=== PATIENT | male | born 2000 | race Caucasian/White ===

== ENCOUNTER 2019-02-13 11:29 | Observation (INO) | payer BC ==
[2019-02-13] MEDS ORDERED: Famotidine 20 MG/2 ML SDV IVPUSH ONE (11:31)
--- NOTE | 2019-02-13 11:31 | EDM.PDOC ---
ED HPI GENERAL MEDICAL PROBLEM - General Chief Complaint: Drug or Alcohol Abuse Stated Complaint: hallucinations Time Seen by Provider: 02/13/19 11:31 Source of Information: Reports: Patient, EMS, Family (Mother), Old Records (No previous hospital records available.). Denies: EMS Notes Reviewed (Not available at time of dictation) History Limitations: Reports: Altered Mental Status - History of Present Illness INITIAL COMMENTS - FREE TEXT/NARRATIVE: The patient was brought to the emergency room via ambulance with spraying machine operator accompaniment. He did receive 1 mg sublingual tablet of Ativan from the spraying machine operator at about 11 AM this morning. Note at about 8 AM the patient ate 3 hallucinogenic mushrooms with the patient having used these in the past. He obtained these from a friend and also admits to daily marijuana use as below during the last year. The paramedics did call poison control with Ativan and Haldol recommended for treatment but no gastric lavage, charcoal, etc. per their recommendations. Patient is an extremely poor historian secondary to his previous auditory and visual hallucinations and current confusion with 50% improvement of his symptoms per paramedics after Ativan was given. The patient denies any chest pain/pressure, heart flutter, dizziness, orthostasis, orthopnea , diaphoresis, paresthesias, recent decreased exercise tolerance, or any other anginal-type symptoms. No recent history of abdominal pain, heartburn, nausea, diarrhea, melena, gross hematochezia, or any food intolerance, including fatty foods, etc.. The patient also denies any recent fever, cough, wheezing, dyspnea , etc.. No history of recent headaches, visual changes, diplopia, change in mental status, or other change in neurological status. He denies any pain or discomfort. Onset: Today, Sudden Onset Date: 02/13/19 Onset Time: 08:00 Duration: Improving Location: Reports: Other (No pain) Quality: Denies: Same as Previous Episode Severity: Severe (Hallucinations as above) Improves with: Reports: Medication Worsens with: Reports: None Context: Reports: Other (As above). Denies: Sick Contact, Trauma Associated Symptoms: Reports: Confusion. Denies: Chest Pain, Cough, Diaphoresis , Fever/Chills, Headaches, Loss of Appetite, Malaise, Nausea/Vomiting, Shortness of Breath, Syncope, Weakness Treatments ACQUISITIONS LOGISTICS ANALYST: Reports: Other Medication(s) (As above) - Related Data Allergies Allergy/AdvReac Type Severity Reaction Status Date / Time No Known Allergies Allergy Verified 02/13/19 11:35 Past Medical History HEENT History: Reports: None. Denies: Allergic Rhinitis, Hard of Hearing, Impaired Vision, Otitis Media, Retinal Detachment Cardiovascular History: Reports: Hypertension, Other (See Below). Denies: Afib , Aneurysm, Arrhythmia, Blood Clots/VTE/DVT, CAD, Heart Murmur, High Cholesterol , AL, Syncope Other Cardiovascular History: Hypertension not currently under medical therapy. Cholesterol status unknown. Respiratory History: Reports: None. Denies: Asthma, Bronchitis, Recurrent, COPD , Intubation, Difficult, Intubation, Previous, PE, Pneumonia, Recurrent, Pneumothorax, Sleep Apnea Gastrointestinal History: Reports: None. Denies: Celiac Disease, Cholelithiasis , Chronic Constipation, Chronic Diarrhea, Fecal Incontinence, Gastritis, GERD, GI Bleed, Hepatitis, Inflammatory Bowel Disease, Irritable Bowel Syndrome, Jaundice, Pancreatitis, PUD Genitourinary History: Reports: None. Denies: Acute Renal Failure, Chronic Renal Insuffiency, Renal Calculus, STD, Urinary Incontinence, UTI, Recurrent Musculoskeletal History: Reports: Amputation, Fracture, Other (See Below). Denies: Arthritis, Back Pain, Chronic, Gout, Neck Pain, Chronic, Osteoarthritis , RA, SLE Other Musculoskeletal History: Left mid radial ulnar fracture at about age 9. Neurological History: Denies: Cerebral Aneurysms, Concussion, CVA, Headaches, Chronic, Head Trauma, Migraines, Neuropathy, Peripheral, Seizure, TIA Psychiatric History: Reports: Addiction, Anxiety, Depression, Suicidal Ideation. Denies: Abuse, Victim of, ADD, ADHD, Psych Hospitalization(s), PTSD, Suicide Attempt Other Psychiatric History: Marijuana use as below. Endocrine/Metabolic History: Reports: None. Denies: Diabetes, Type I, Diabetes , Type II, Diabetes Mellitus, Type 3c, Hypothyroidism, IDDM, Obesity/BMI 30+ Hematologic History: Reports: None. Denies: Anemia, Blood Transfusion(s), Iron Deficiency Immunologic History: Denies: AIDS, HIV, SLE Oncologic (Cancer) History: Reports: None. Denies: Basal Cell Carcinoma, Hodgkin's Lymphoma, Leukemia, Lymphoma, Malignant Melanoma, Non-Hodgkin's Lymphoma, Squamous Cell Carcinoma Dermatologic History: Reports: None. Denies: Eczema, Psoriasis - Infectious Disease History Infectious Disease History: Reports: Mumps. Denies: C-Difficile, Chicken Pox, Measles, Meningitis, Mononucleosis, MRSA, Pertussis (Whooping Cough), Rheumatic Fever, Rubella, Scarlet Fever, Shingles, TB, VRE - Past Surgical History Head Surgeries/Procedures: Reports: None HEENT Surgical History: Denies: Adenoidectomy, Eye Surgery, Laser Surgery, LASIK , Myringotomy w Tube(s), Naso-Sinus Surgery, Oral Surgery, Tonsillectomy Cardiovascular Surgical History: Reports: None. Denies: Varicose Respiratory Surgical History: Reports: None. Denies: Thoracentesis GI Surgical History: Reports: Hernia, Inguinal, Other (See Below). Denies: Appendectomy, Cholecystectomy, Colonoscopy, EGD, Hernia, Abdominal, Hernia Repair/Other Other GI Surgeries/Procedures: Left inguinal repair in 2017. Male Surgical History: Reports: Circumcision, Other (See Below). Denies: Vasectomy Other Male Surgeries/Procedures: Circumcision as an infant. Endocrine Surgical History: Reports: None. Denies: Thyroid Biopsy Neurological Surgical History: Reports: None. Denies: C-Spine, Discectomy, Laminectomy, Lumbar Spine, Sacral Spine, Spinal Fusion, Thoracic Spine, Vertebroplasty Musculoskeletal Surgical History: Reports: None. Denies: Arthroscopic Procedure , Carpal Tunnel, Ganglion Cyst, Joint Replacement, ORIF, Shoulder Surgery Oncologic Surgical History: Reports: None Dermatological Surgical History: Reports: None Social & Family History - Family History HEENT: Reports: None, Macular Degeneration, Other (See Below). Denies: Glaucoma , Retinal Detachment Other HEENT Family History: Paternal grandfather with macular degeneration. Cardiac: Reports: CAD, Hypertension, AL, Other (See Below). Denies: Afib, Aneurysm, Arrhythmia, Blood Clots/VTE/DVT, High Cholesterol, PVD/COD, Stent, Syncope Other Cardiac Family History: Paternal grandfather with history of AL in his 60s with CABG x3. Mother and maternal grandfather with hypertension. Respiratory: Reports: Asthma, Other (See Below). Denies: COPD, PE, Pneumothorax , Sleep Apnea Other Respiratory Family Hisory: Mother with asthma. GI: Reports: GERD, Other (See Below). Denies: Celiac Disease, Cholelithiasis, Colon Polyps, GI bleed, Inflammatory Bowel Disease, Irritable Bowel Syndrome, PUD Other GI Family History: Mother and maternal grandfather with GERD. : Reports: Other (See Below). Denies: Renal Calculus, Renal Disease/ Insufficiency Other Family History: Brother with non-descended testis with planned surgery at age 13. OBGYN: Reports: Dysfunctional uterine bleeding, Fibroids, Recurrent Spontaneous , Other (See Below). Denies: Endometriosis Other OBGYN Family History: Mother with history of hysterectomy secondary to uterine fibroids and dysfunctional uterine bleeding. Maternal grandmother with recurrent SABs. Musculoskeletal: Reports: SLE, Other (See Below). Denies: Gout, RA Other Musculoskeletal Family History: Mother with SLE. Neurological: Reports: Migraines, Other (See Below). Denies: Alzheimers Disease , Cerebral Aneurysms, CVA, Dementia, MS, Parkinson's, Seizure, TIA Other Neurological Family History: Mother with migraine headaches. Psychiatric: Reports: Anxiety, Depression, Other (See Below). Denies: Abuse, Victim of, ADD, ADHD, Psych Hospitalization(s), Psychosis, PTSD, Suicide Attempt Other Psychiatric Family History: Mother, maternal uncle, and maternal grandmother with anxiety depression disorder. Endocrine/Metabolic: Reports: Hypothyroidism, Other (See Below). Denies: Diabetes, Gestational, Diabetes, Type I, Diabetes, type II, Diabetes Mellitus, Type 3c, IDDM Other Endocrine/Metabolic Family History: Mother with hypothyroidism. Hematologic: Reports: SLE, Other (See Below). Denies: Anemia Other Hematologic Family History: Mother with SLE. Immunologic: Reports: SLE, Other (See Below). Denies: AIDS, HIV Other Immunologic Family History: Mother with SLE as above. Dermatologic: Reports: None. Denies: Eczema, Psoriasis Oncologic: Reports: Breast, Pancreatic, Other (See Below). Denies: Colon, Hodgkin's Lymphoma, Lymphoma, Non-Hodgkin's Lymphoma, Prostate, Skin Other Oncologic Family History: Mother with fatal metastatic breast cancer at age 47. Maternal great grandmother with fatal pancreatic cancer at 68. Maternal grandfather with mesothelioma. - Tobacco Use Smoking Status *Q: Former Smoker Tobacco Use Within Last Twelve Months: Cigarettes Years of Tobacco use: 6 Packs/Tins Daily: 0.1 Packs/Tins Daily Comment: Smoked cigarettes between ages 12 and 18. Used Tobacco, but Quit: Yes Smoking Cessation Information Provided To Patient: No Second Hand Smoke Exposure: No Second Hand Smoke Education Provided: No - Caffeine Use Caffeine Use: Reports: Energy Drinks (2 Cans per day.). Denies: Coffee, Soda, Tea - Alcohol Use Alcohol Use History: Yes Days Per Week of Alcohol Use: 7 Number of Drinks Per Day: 2 Number of Drinks Per Day Comment: Usually beer. No previous DWIs, problems with alcohol abuse, etc. Total Drinks Per Week: 14 Alcohol Use in Last Twelve Months: Yes Alcohol Use Frequency: Daily - Recreational Drug Use Recreational Drug Use: Yes Drug Use in Last 12 Months: Yes Recreational Drug Type: Reports: Marijuana/Hashish (0.5 joints per day since age 18.), Psilocybin (Mushrooms). Denies: Amphetamines (Speed), Heroin, Inhalants (Glues, Solvents, Aerosols), LSD (Acid), Methamphetamine, Morphine, Oxycodone, PCP (Oscar Dust) Recreational Drug Use Frequency: Daily Recreational Drug Route: Reports: Inhaled - Living Situation & Occupation Living situation: Reports: Single (No children), Alone Occupation: Employed ([email or web address]) ED ROS GENERAL - Review of Systems Review Of Systems: Comprehensive ROS is negative, except as noted in HPI. ED EXAM, GENERAL - Physical Exam Exam: See Below Exam Limited By: No Limitations General Appearance: Alert, No Apparent Distress, Other (Confusion with auditory and visual hallucinations) Eye Exam: Bilateral Eye: EOMI, Normal Fundi, Normal Inspection (No nystagmus), PERRL Ears: Normal External Exam, Normal Canal, Hearing Grossly Normal, Normal TMs Nose: Normal Inspection, Normal Mucosa, No Blood Throat/Mouth: Normal Inspection, Normal Lips, Normal Teeth, Normal Gums, Normal Oropharynx, Normal Voice, No Airway Compromise. No: Dysphagia, Perioral Cyanosis Head: Atraumatic, Normocephalic. No: Facial Swelling, Facial Tenderness, Sinus Tenderness Neck: Normal Inspection, Supple, Non-Tender, Full Range of Motion. No: Carotid Bruit, Lymphadenopathy (L), Lymphadenopathy (R), Thyromegaly Respiratory/Chest: No Respiratory Distress, Lungs Clear, Normal Breath Sounds, No Accessory Muscle Use, Chest Non-Tender. No: Pleural Rub, Retractions Cardiovascular: Normal Peripheral Pulses, Regular Rate, Rhythm, No Edema, No Gallop, No JVD, No Murmur, No Rub. No: Gallop/S3, Gallop/S4, Friction Rub Peripheral Pulses: 2+: Radial (L), Radial (R), Dorsalis Pedis (L), Dorsalis Pedis (R) GI/Abdominal: Normal Bowel Sounds, Soft, Non-Tender, No Organomegaly, No Distention, No Abnormal Bruit, No Mass. No: Guarding (Male) Exam: Deferred Rectal (Males) Exam: Deferred Back Exam: Normal Inspection, Full Range of Motion. No: CVA Tenderness (L), CVA Tenderness (R), Muscle Spasm Extremities: Normal Inspection, Normal Range of Motion, Non-Tender, No Pedal Edema, Normal Capillary Refill. No: Omega's Sign Neurological: Alert, Normal Reflexes (Negative Babinski's), Confused, Disoriented, Other (Hallucinations as above) Psychiatric: Anxious (Moderate), Depressed Mood (Mild to moderate) Skin Exam: Warm, Dry, Intact, Normal Color, No Rash. No: Diaphoretic, Ecchymosis, Petechiae, Wound/Incision Lymphatic: No Adenopathy Course - Vital Signs Last Recorded V/S: Last Vital Signs Temp 37.1 C 02/13/19 11:33 Pulse 79 02/13/19 12:30 Resp 16 02/13/19 12:30 BP 129/79 02/13/19 12:30 Pulse Ox 98 02/13/19 12:30 Vital Signs - 24 hr 02/13/19 02/13/19 02/13/19 11:31 11:33 11:45 Temperature [ 37.1 C 37.1 C Oral] Pulse, 81 81 89 Peripheral [ Pulse Oximetry] Respiratory 14 14 20 Rate Blood Pressure 137/92 H 137/92 H 141/79 H [Right Upper Arm] O2 Sat by Pulse 99 100 100 Oximetry 02/13/19 02/13/19 02/13/19 12:00 12:15 12:30 Temperature [ Oral] Pulse, 74 74 79 Peripheral [ Pulse Oximetry] Respiratory 17 16 16 Rate Blood Pressure 130/73 123/63 129/79 [Right Upper Arm] O2 Sat by Pulse 98 95 98 Oximetry - Orders/Labs/Meds Orders: Active Orders 24 hr Category Date Time Status Cardiac Monitoring [RC] . DIRECTED Care 02/13/19 11:31 Active Oxygen Therapy, ED [RC] PRN Care 02/13/19 11:31 Active Peripheral IV Care [RC] . DIRECTED Care 02/13/19 11:31 Active Pulse Oximetry [RC] CONTINUOUS Care 02/13/19 11:31 Active Up With Assistance [RC] PFP Care 02/13/19 11:31 Active Vital Signs [RC] PFP Care 02/13/19 11:31 Active Nothing per Oral Now Diet [DIET] Diet 02/13/19 Breakfast Active CULTURE URINE [RM] Routine Lab 02/13/19 11:31 Ordered DRUG SCREEN, URINE [URCHEM] Stat Lab 02/13/19 11:34 Ordered UA W/MICROSCOPIC [URIN] Stat Lab 02/13/19 11:33 Ordered Sodium Chloride 0.9% [Saline Flush] Med 02/13/19 11:31 Active 10 ml FLUSH ASDIRECTED PRN Obtain Past Medical Record [OM.PC] Urgent Oth 02/13/19 11:31 Active Peripheral IV Insertion Adult [OM.PC] Stat Oth 02/13/19 11:31 Ordered Resuscitation Status Stat Resus Stat 02/13/19 11:31 Ordered Medication Orders Sodium Chloride (Saline Flush) 10 ml FLUSH ASDIRECTED PRN PRN Reason: Keep Vein Open Last Admin: 02/13/19 11:52 Dose: 10 ml Admin: 02/13/19 11:51 Dose: 10 ml Labs: Laboratory Tests 02/13/19 02/13/19 02/13/19 Range/Units 11:30 11:31 11:35 WBC 11.4 H (4.0-10.2) K/uL RBC 4.95 (4.33-5.41) M/uL Hgb 15.1 (13.1-16.8) g/dL Hct 42.5 (39.0-49.0) % MCV 85.9 (84.0-98.0) fL MCH 30.5 (28.2-33.3) pg MCHC 35.5 (31.7-36.0) g/dL RDW 12.1 (11.2-14.1) % Plt Count 228 (150-350) K/uL Neut % (Auto) 81.2 H (45.0-80.0) % Lymph % (Auto) 11.0 (10.0-50.0) % [place] % (Auto) 7.1 (2.0-14.0) % Eos % (Auto) 0.4 (0.0-5.0) % Baso % (Auto) 0.3 (0.0-2.0) % Neut # (Auto) 9.27 H (1.40-7.00) K/uL Lymph # (Auto) 1.26 (0.50-3.50) K/uL [place] # (Auto) 0.81 (0.00-1.00) K/uL Eos # (Auto) 0.05 (0.00-0.50) K/uL Baso # (Auto) 0.03 (0.00-0.20) K/uL PT 11.7 (9.5-12.0) SEC INR 1.1 APTT 28.2 (21.0-31.3) SEC Sodium 139 (136-145) mmol/L Potassium 3.6 (3.5-5.1) mmol/L Chloride 100 (98-107) mmol/L Carbon Dioxide 28.4 (21.0-32.0) mmol/L BUN 18 (7-18) mg/dL Creatinine 1.03 (0.51-1.17) mg/dL Est Cr Clr Drug Dosing TNP Estimated GFR (MDRD) > 60 mL/min Glucose 109 H (74-106) mg/dL Lactic Acid (0.4-2.0) mmol/L Uric Acid 6.6 (2.6-7.2) mg/dL Calcium 9.4 (8.5-10.1) mg/dL Magnesium 1.9 (1.8-2.4) mg/dL Total Bilirubin 0.6 (0.2-1.0) mg/dL AST 20 (15-37) U/L ALT 22 (12-78) U/L Alkaline Phosphatase 68 (46-116) IU/L Creatine Kinase 243 (26-308) U/L Creatine Kinase Index 0.7 (0.0-2.5) % CK-MB (CK-2) 1.70 (0.00-3.60) ng/mL Total Protein 8.5 H (6.4-8.2) g/dL Albumin 4.7 (3.4-5.0) g/dL TSH, Ultra Sensitive 3.143 (0.358-3.740) mIU/mL 02/13/19 Range/Units 11:35 WBC (4.0-10.2) K/uL RBC (4.33-5.41) M/uL Hgb (13.1-16.8) g/dL Hct (39.0-49.0) % MCV (84.0-98.0) fL MCH (28.2-33.3) pg MCHC (31.7-36.0) g/dL RDW (11.2-14.1) % Plt Count (150-350) K/uL Neut % (Auto) (45.0-80.0) % Lymph % (Auto) (10.0-50.0) % [place] % (Auto) (2.0-14.0) % Eos % (Auto) (0.0-5.0) % Baso % (Auto) (0.0-2.0) % Neut # (Auto) (1.40-7.00) K/uL Lymph # (Auto) (0.50-3.50) K/uL [place] # (Auto) (0.00-1.00) K/uL Eos # (Auto) (0.00-0.50) K/uL Baso # (Auto) (0.00-0.20) K/uL PT (9.5-12.0) SEC INR APTT (21.0-31.3) SEC Sodium (136-145) mmol/L Potassium (3.5-5.1) mmol/L Chloride (98-107) mmol/L Carbon Dioxide (21.0-32.0) mmol/L BUN (7-18) mg/dL Creatinine (0.51-1.17) mg/dL Est Cr Clr Drug Dosing Estimated GFR (MDRD) mL/min Glucose (74-106) mg/dL Lactic Acid 1.9 (0.4-2.0) mmol/L Uric Acid (2.6-7.2) mg/dL Calcium (8.5-10.1) mg/dL Magnesium (1.8-2.4) mg/dL Total Bilirubin (0.2-1.0) mg/dL AST (15-37) U/L ALT (12-78) U/L Alkaline Phosphatase (46-116) IU/L Creatine Kinase (26-308) U/L Creatine Kinase Index (0.0-2.5) % CK-MB (CK-2) (0.00-3.60) ng/mL Total Protein (6.4-8.2) g/dL Albumin (3.4-5.0) g/dL TSH, Ultra Sensitive (0.358-3.740) mIU/mL Meds: Medications Generic Name Dose Route Start Last Admin Trade Name Freq PRN Reason Stop Dose Admin Sodium Chloride 10 ml 02/13/19 11:31 02/13/19 11:52 Saline Flush FLUSH 10 ml ASDIRECTED PRN Administration Keep Vein Open Discontinued Medications Generic Name Dose Route Start Last Admin Trade Name Freq PRN Reason Stop Dose Admin Famotidine 40 mg 02/13/19 11:31 02/13/19 11:51 Pepcid IVPUSH 02/13/19 11:32 40 mg ONETIME ONE Administration Haloperidol Lactate 1 mg 02/13/19 11:34 02/13/19 11:51 Haldol IVPUSH 02/13/19 11:35 1 mg ONETIME ONE Administration - Radiology Interpretation Free Text/Narrative:: Processing Specialist shows normal sinus rhythm with heart rate in the 70s to 90s with no ectopy or arrhythmia. Departure - Departure Time of Disposition: 12:55 Disposition: Refer to Observation Condition: Good Clinical Impression: Drug abuse, Confusion, Mixed anxiety depressive disorder Hypertension Qualifiers: Hypertension type: essential hypertension Qualified Code(s): I10 - Essential ( primary) hypertension - Discharge Information *PRESCRIPTION DRUG MONITORING PROGRAM REVIEWED*: Not Applicable *COPY OF PRESCRIPTION DRUG MONITORING REPORT IN PATIENT JANIA: Not Applicable Sepsis Event Note - Focused Exam Vital Signs: Vital Signs Temp Pulse Resp BP Pulse Ox 02/13/19 12:30 79 16 129/79 98 02/13/19 12:15 74 16 123/63 95 02/13/19 12:00 74 17 130/73 98 02/13/19 11:45 89 20 141/79 H 100 02/13/19 11:33 37.1 C 81 14 137/92 H 100 02/13/19 11:31 37.1 C 81 14 137/92 H 99 Date Exam was Performed: 02/13/19 Time Exam was Performed: 13:16 - Problem List & Annotations (1) Confusion SNOMED Code(s): 895613840 Code(s): R41.0 - DISORIENTATION, UNSPECIFIED Status: Acute Priority: High Current Visit: Yes Onset Date: 02/13/19 Annotation/Comment:: Auditory and visual hallucinations with confusion secondary to hallucinogenic mushroom use as above. Poison control has already been contacted. IV Haldol was given in the emergency room with continuation of IV Ativan and IV Haldol as needed. Patient will be placed in observation status on telemetry with blood work to be repeated in the a.m. Neuro checks with vitals. Mild WBC elevation likely secondary to stress reaction. (2) Drug abuse SNOMED Code(s): 90496340 Code(s): F19.10 - OTHER PSYCHOACTIVE SUBSTANCE ABUSE, UNCOMPLICATED Status : Chronic Priority: High Current Visit: Yes Annotation/Comment:: Increased marijuana and drug use during the last year with progressive anxiety and depression by his mother's history. In addition, possible beginning alcohol abuse. [employer] work excuse provided. (3) Hypertension SNOMED Code(s): 04418117 Code(s): I10 - ESSENTIAL (PRIMARY) HYPERTENSION Status: Chronic Priority : Medium Current Visit: Yes Annotation/Comment:: Not currently under medical therapy. Improved at time of admission. Continue to observe closely. Qualifiers: Hypertension type: essential hypertension Qualified Code(s): I10 - Essential (primary) hypertension (4) Mixed anxiety depressive disorder SNOMED Code(s): 834048386 Code(s): F41.8 - OTHER SPECIFIED ANXIETY DISORDERS Status: Chronic Priority: High Current Visit: Yes Annotation/Comment:: Patient states he has had history of recent suicidal ideation without plan. Patient would benefit from counseling, etc. Emotional support provided. - Problem List Review Problem List Initiated/Reviewed/Updated: Yes - My Orders Last 24 Hours: My Active Orders 02/13/19 11:31 Cardiac Monitoring [RC] . DIRECTED Oxygen Therapy, ED [RC] PRN Peripheral IV Care [RC] . DIRECTED Pulse Oximetry [RC] CONTINUOUS Up With Assistance [RC] PFP Vital Signs [RC] PFP CULTURE URINE [RM] Routine Sodium Chloride 0.9% [Saline Flush] 10 ml FLUSH ASDIRECTED PRN Obtain Past Medical Record [OM.PC] Urgent Peripheral IV Insertion Adult [OM.PC] Stat Resuscitation Status Stat 02/13/19 11:33 UA W/MICROSCOPIC [URIN] Stat 02/13/19 11:34 DRUG SCREEN, URINE [URCHEM] Stat 02/13/19 Breakfast Nothing per Oral Now Diet [DIET] - Assessment/Plan Admission H&P: Please use this note as an admission H&P Last 24 Hours: My Active Orders 02/13/19 11:31 Cardiac Monitoring [RC] . DIRECTED Oxygen Therapy, ED [RC] PRN Peripheral IV Care [RC] . DIRECTED Pulse Oximetry [RC] CONTINUOUS Up With Assistance [RC] PFP Vital Signs [RC] PFP CULTURE URINE [RM] Routine Sodium Chloride 0.9% [Saline Flush] 10 ml FLUSH ASDIRECTED PRN Obtain Past Medical Record [OM.PC] Urgent Peripheral IV Insertion Adult [OM.PC] Stat Resuscitation Status Stat 02/13/19 11:33 UA W/MICROSCOPIC [URIN] Stat 02/13/19 11:34 DRUG SCREEN, URINE [URCHEM] Stat 02/13/19 Breakfast Nothing per Oral Now Diet [DIET] Assessment:: As above Plan: As above. Extensive precautions were given to the patient and his mother, who are in agreement with the treatment plan. See Patient Instructions for further treatment and plan.
[2019-02-13] MEDS ORDERED: Haloperidol Lactate 5 MG/ML SDV IVPUSH ONE (11:34)
[2019-02-13] MEDS: Sodium Chloride 0.9% 10 ML Syringe FLUSH PRN ×2 (11:51→11:52)
[2019-02-13 12:06] LABS: CHLORIDE,CL 100 mmol/L (98-107); SODIUM,NA 139 mmol/L (136-145)
[2019-02-13] MEDS ORDERED: Ondansetron 4 MG/2 ML SDV IVPUSH PRN (13:23)
[2019-02-13] MEDS ORDERED: Acetaminophen 325 MG Tab PO PRN (13:23)
[2019-02-13] MEDS ORDERED: Haloperidol Lactate 5 MG/ML SDV IVPUSH PRN (13:25)
[2019-02-13] MEDS ORDERED: LORazepam 2 MG/ML SDV IVPUSH PRN (13:26)
[2019-02-13] MEDS ORDERED: Sodium Chloride 0.9% 10 ML Syringe FLUSH SCH (20:00)
[2019-02-14 06:47] LABS: BARBITURATE SCREEN,URINE NEGATIVE (NEGATIVE); BENZODIAZEPINES SCREEN,URINE NEGATIVE (NEGATIVE); EDDP,URINE SCREEN NEGATIVE (NEGATIVE); TCA SCREEN,URINE NEGATIVE (NEGATIVE); THC SCREEN,URINE 50 NG/ML POSITIVE (NEGATIVE)
[2019-02-14 07:43] LABS: CHLORIDE,CL 103 mmol/L (98-107); SODIUM,NA 139 mmol/L (136-145)
--- NOTE | 2019-02-14 09:18 | PCM.DCSUM1 ---
Discharge Summary - Hospital Course HPI Initial Comments: See emergency room note/admission H&P Brief History: See emergency room note/admission H&P Diagnosis: Stroke: No Modified [place] Scale: No Symptoms at All Modified [place] Scale Score: 0 - Discharge Data Discharge Date: 02/14/19 Discharge Disposition: Home, Self-Care 01 Condition: Good - Referral to Home Health Primary Care Physician: Renuka Haskins PA-C - Discharge Diagnosis/Problem(s) (1) Confusion SNOMED Code(s): 262052756 ICD Code: R41.0 - DISORIENTATION, UNSPECIFIED Status: Acute Priority: High Current Visit: Yes Onset Date: 02/13/19 Problem Details: Patient responded well to IV Ativan and IV Haldol therapy as below with resolution of previous auditory and visual hallucinations with confusion secondary to hallucinogenic mushroom use. Poison control had already been contacted by the paramedics prior to arrival to the emergency room. IV Haldol was given in the emergency room with continuation of IV Ativan and IV Haldol as needed during this hospitalization. Patient was placed in observation status on telemetry with blood work repeated with results as below. Neuro checks with vitals during this hospitalization were stable and his mental status at discharge. Mild persistent WBC elevation likely secondary to stress reaction however improved this morning with no evidence of infection. (2) Drug abuse SNOMED Code(s): 78271689 ICD Code: F19.10 - OTHER PSYCHOACTIVE SUBSTANCE ABUSE, UNCOMPLICATED Status : Chronic Priority: High Current Visit: Yes Problem Details: Increased marijuana and drug use during the last year with progressive anxiety and depression by his mother's history. In addition, possible beginning alcohol abuse. [employer] work excuse provided both on admission and at hospital discharge. Patient denies an aggravating factor during the last year, which resulted in his significant illicit drug use as above. Harmful effects of illicit drugs was extensively discussed at time of discharge patient also encouraged to avoid alcohol use. (3) Mixed anxiety depressive disorder SNOMED Code(s): 793267030 ICD Code: F41.8 - OTHER SPECIFIED ANXIETY DISORDERS Status: Chronic Priority: High Current Visit: Yes Problem Details: Minicounseling was performed during today's visit with emotional support provided. The effects of marijuana, etc. on his emotional status was also extensively discussed. The importance of spiritual aspects of emotional health and initiation of family counseling with his mother and family either with his regular provider or another counselor were also emphasized. The patient does not wish to start medication for his anxiety depression at this time, however he does agree to consider recommended counseling as above. He denies any current suicidal ideation with the patient stating that he has had recent suicidal ideation without plan during the last year. (4) Hypertension SNOMED Code(s): 83326669 ICD Code: I10 - ESSENTIAL (PRIMARY) HYPERTENSION Status: Chronic Priority : Medium Current Visit: Yes Problem Details: Not currently under medical therapy. Improved at time of admission with probable anxiety component to his previous elevated blood pressures. Blood pressures were stable and mostly normal during this hospitalization. Continue to observe closely by his regular provider.. Qualifiers: Hypertension type: essential hypertension Qualified Code(s): I10 - Essential (primary) hypertension - Patient Summary/Data Operative Procedure(s) Performed: None Complications: None Consults: Poison control as above Labs Pending at D/C: None Recommended Follow-up Testing/Procedures: As per discharge instructions Planned Operative Procedure(s) after DC: As above Hospital Course: The patient was placed in observation status on telemetry with treatment of his reaction to hallucinogenic as above. No evidence of arrhythmia or other complications during this hospitalization. Note mini-counseling session performed with emotional support provided. - Patient Instructions Diet: Regular Diet as Tolerated Activity: As Tolerated Driving: May Drive Today Showering/Bathing: May Shower Notify Provider of: Nausea and/or Vomiting Other/Special Instructions: 1. Followup with your regular provider in 7-10 days as directed. Bring these discharge instructions with you to that visit. 2. Recommend discussion of initiation of counseling for your current stressors with initiation of a drug and/or alcohol treatment program at the above follow- up visit, if needed. 3. Discontinue all use of illicit drugs as discussed. 4. Immediately after this visit verify that your cellular telephone's voicemail has been activated and is empty. Also verify that your home telephone 's answering machine is operating properly and has space to receive messages. Note that it is sometimes necessary for us to be able to contact you at a later date to discuss your medical care. 5. Please remember that we are ALWAYS here for you and want to answer any questions you may have. Feel free to call the hospital any time and we call you back ALEJANDRA. - Discharge Plan *PRESCRIPTION DRUG MONITORING PROGRAM REVIEWED*: Not Applicable *COPY OF PRESCRIPTION DRUG MONITORING REPORT IN PATIENT JANIA: Not Applicable Oxygen Therapy Mode: Room Air Referrals: Renuka Haskins PA-C [Primary Care Provider] - - Discharge Summary/Plan Comment DC Time >30 min.: Yes (Coordination of care ) Discharge Summary/Plan Comment: As above. Extensive precautions were given to the patient, who is in agreement with the treatment plan. See Patient Instructions for further treatment and plan. - General Info Date of Service: 02/14/19 Admission Dx/Problem (Free Text: 1. Confusion 2. Illicit drug use 3. Anxiety depression disorder Functional Status: Reports: Pain Controlled, Tolerating Diet, Ambulating, Urinating, New Symptoms. Denies: Incentive Spirometry Numeric/FACES Score: 0 - Review of Systems General: Reports: No Symptoms. Denies: Fever, Weakness, Fatigue, Malaise, Chills, Night Sweats HEENT: Reports: No Symptoms. Denies: Ear Pain, Eye Pain, Headaches, Sinus Congestion, Sore Throat, Rhinitis, Visual Changes Pulmonary: Reports: No Symptoms. Denies: Shortness of Breath, Pleuritic Chest Pain, Cough, Sputum, Hemoptysis, Wheezing Cardiovascular: Reports: No Symptoms. Denies: Chest Pain, Palpitations, Dyspnea on Exertion, Orthopnea, PND, Edema, Lightheadedness Gastrointestinal: Reports: No Symptoms, Other (Normal bowel movement this morning). Denies: Abdominal Pain, Constipation, Decreased Appetite, Diarrhea, Difficulty Swallowing, Flatus, Hematochezia, Melena, Nausea, Vomiting Genitourinary: Reports: No Symptoms. Denies: Dysuria, Frequency, Burning, Pain , Urgency, Incontinence, Hematuria, Retention, Flank Pain Musculoskeletal: Reports: No Symptoms. Denies: Neck Pain, Shoulder Pain, Arm Pain, Back Pain, Leg Pain Skin: Reports: No Symptoms. Denies: Jaundice, Diaphoresis, Bruising, Pruritis Neurological: Reports: No Symptoms. Denies: Confusion, Dizziness, Headache, Numbness, Paresthesia, Seizure, Tingling Psychiatric: Reports: No Symptoms. Denies: Confusion, Depression, Anxiety, Agitation, Cravings, Hallucinations (Resolved), Suicidal Ideation, Homicidal Ideation - Patient Data Vitals - Most Recent: Last Vital Signs Temp 36.4 C 02/14/19 00:00 Pulse 69 02/14/19 00:00 Resp 16 02/14/19 00:00 BP 119/81 02/14/19 00:00 Pulse Ox 100 02/14/19 00:00 Vital Signs - 24 hr 02/13/19 02/13/19 02/13/19 11:31 11:33 11:45 Temperature [ 37.1 C 37.1 C Oral] Temperature [ Temporal] Pulse, Peripheral [ Left Pulse Oximetry] Pulse, 81 81 89 Peripheral [ Pulse Oximetry] Respiratory 14 14 20 Rate Blood Pressure [Left Upper Arm ] Blood Pressure 137/92 H 137/92 H 141/79 H [Right Upper Arm] O2 Sat by Pulse 99 100 100 Oximetry 02/13/19 02/13/19 02/13/19 12:00 12:15 12:30 Temperature [ Oral] Temperature [ Temporal] Pulse, Peripheral [ Left Pulse Oximetry] Pulse, 74 74 79 Peripheral [ Pulse Oximetry] Respiratory 17 16 16 Rate Blood Pressure [Left Upper Arm ] Blood Pressure 130/73 123/63 129/79 [Right Upper Arm] O2 Sat by Pulse 98 95 98 Oximetry 02/13/19 02/13/19 02/13/19 13:24 16:00 20:00 Temperature [ 36.6 C 37.2 C Oral] Temperature [ Temporal] Pulse, 66 73 Peripheral [ Left Pulse Oximetry] Pulse, Peripheral [ Pulse Oximetry] Respiratory 14 18 Rate Blood Pressure [Left Upper Arm ] Blood Pressure 129/54 L 123/69 [Right Upper Arm] O2 Sat by Pulse 98 96 95 Oximetry 02/14/19 02/14/19 00:00 08:00 Temperature [ Oral] Temperature [ 36.4 C 35.8 C Temporal] Pulse, 65 Peripheral [ Left Pulse Oximetry] Pulse, 69 Peripheral [ Pulse Oximetry] Respiratory 16 16 Rate Blood Pressure 119/81 131/72 [Left Upper Arm ] Blood Pressure [Right Upper Arm] O2 Sat by Pulse 100 100 Oximetry Weight - Most Recent: 90.582 kg I&O - Last 24 hours: Intake & Output 02/13/19 02/14/19 02/14/19 22:59 06:59 14:59 Intake Total 400 500 Balance 400 500 Imaging Impressions - Last 24 hrs: para educator shows normal sinus rhythm with average heart rate in the 60s to 80s with only very occasional mild sinus bradycardia with no ectopy or arrhythmia Lab Results - Last 24 hrs: Laboratory Results - last 24 hr 12/19/19 12/19/19 12/19/19 Range/Units 11:30 11:31 11:35 WBC 11.4 H (4.0-10.2) K/uL RBC 4.95 (4.33-5.41) M/uL Hgb 15.1 (13.1-16.8) g/dL Hct 42.5 (39.0-49.0) % MCV 85.9 (84.0-98.0) fL MCH 30.5 (28.2-33.3) pg MCHC 35.5 (31.7-36.0) g/dL RDW 12.1 (11.2-14.1) % Plt Count 228 (150-350) K/uL Neut % (Auto) 81.2 H (45.0-80.0) % Lymph % (Auto) 11.0 (10.0-50.0) % [place] % (Auto) 7.1 (2.0-14.0) % Eos % (Auto) 0.4 (0.0-5.0) % Baso % (Auto) 0.3 (0.0-2.0) % Neut # (Auto) 9.27 H (1.40-7.00) K/uL Lymph # (Auto) 1.26 (0.50-3.50) K/uL [place] # (Auto) 0.81 (0.00-1.00) K/uL Eos # (Auto) 0.05 (0.00-0.50) K/uL Baso # (Auto) 0.03 (0.00-0.20) K/uL PT 11.7 (9.5-12.0) SEC INR 1.1 APTT 28.2 (21.0-31.3) SEC Sodium 139 (136-145) mmol/L Potassium 3.6 (3.5-5.1) mmol/L Chloride 100 (98-107) mmol/L Carbon Dioxide 28.4 (21.0-32.0) mmol/L BUN 18 (7-18) mg/dL Creatinine 1.03 (0.51-1.17) mg/dL Est Cr Clr Drug Dosing TNP Estimated GFR (MDRD) > 60 mL/min Glucose 109 H (74-106) mg/dL Lactic Acid (0.4-2.0) mmol/L Uric Acid 6.6 (2.6-7.2) mg/dL Calcium 9.4 (8.5-10.1) mg/dL Magnesium 1.9 (1.8-2.4) mg/dL Total Bilirubin 0.6 (0.2-1.0) mg/dL AST 20 (15-37) U/L ALT 22 (12-78) U/L Alkaline Phosphatase 68 (46-116) IU/L Creatine Kinase 243 (26-308) U/L Creatine Kinase Index 0.7 (0.0-2.5) % CK-MB (CK-2) 1.70 (0.00-3.60) ng/mL Total Protein 8.5 H (6.4-8.2) g/dL Albumin 4.7 (3.4-5.0) g/dL TSH, Ultra Sensitive 3.143 (0.358-3.740) mIU/mL Specimen Type Urine Color Urine Appearance Urine pH (5.0-9.0) Ur Specific [place] (1.005-1.030) Urine Protein (NEGATIVE) mg/dL Urine Glucose (UA) (NEGATIVE) mg/dL Urine Ketones (NEGATIVE) mg/dL Urine Occult Blood (NEGATIVE) Urine Nitrite (NEGATIVE) Urine Bilirubin (NEGATIVE) Urine Urobilinogen (0.2-1.0) E.U./dL Ur Leukocyte Esterase (NEGATIVE) Urine RBC /HPF Urine WBC /HPF Ur Epithelial Cells /LPF Urine Bacteria (NONE TO FEW) /HPF Urine Opiates Screen (NEGATIVE) Ur Buprenorphine Scrn (NEGATIVE) Ur Oxycodone Screen (NEGATIVE) Ur EDDP (Meth Metab) (NEGATIVE) Ur Barbiturates Screen (NEGATIVE) Ur Tricyclics Screen (NEGATIVE) Ur Amphetamine Screen (NEGATIVE) U Methamphetamines Scrn (NEGATIVE) Urine MDMA Screen (NEGATIVE) U Benzodiazepines Scrn (NEGATIVE) U Cocaine Metab Screen (NEGATIVE) U Marijuana (THC) Screen (NEGATIVE) 02/13/19 02/13/19 02/13/19 Range/Units 11:35 22:00 22:00 WBC (4.0-10.2) K/uL RBC (4.33-5.41) M/uL Hgb (13.1-16.8) g/dL Hct (39.0-49.0) % MCV (84.0-98.0) fL MCH (28.2-33.3) pg MCHC (31.7-36.0) g/dL RDW (11.2-14.1) % Plt Count (150-350) K/uL Neut % (Auto) (45.0-80.0) % Lymph % (Auto) (10.0-50.0) % [place] % (Auto) (2.0-14.0) % Eos % (Auto) (0.0-5.0) % Baso % (Auto) (0.0-2.0) % Neut # (Auto) (1.40-7.00) K/uL Lymph # (Auto) (0.50-3.50) K/uL [place] # (Auto) (0.00-1.00) K/uL Eos # (Auto) (0.00-0.50) K/uL Baso # (Auto) (0.00-0.20) K/uL PT (9.5-12.0) SEC INR APTT (21.0-31.3) SEC Sodium (136-145) mmol/L Potassium (3.5-5.1) mmol/L Chloride (98-107) mmol/L Carbon Dioxide (21.0-32.0) mmol/L BUN (7-18) mg/dL Creatinine (0.51-1.17) mg/dL Est Cr Clr Drug Dosing Estimated GFR (MDRD) mL/min Glucose (74-106) mg/dL Lactic Acid 1.9 (0.4-2.0) mmol/L Uric Acid (2.6-7.2) mg/dL Calcium (8.5-10.1) mg/dL Magnesium (1.8-2.4) mg/dL Total Bilirubin (0.2-1.0) mg/dL AST (15-37) U/L ALT (12-78) U/L Alkaline Phosphatase (46-116) IU/L Creatine Kinase (26-308) U/L Creatine Kinase Index (0.0-2.5) % CK-MB (CK-2) (0.00-3.60) ng/mL Total Protein (6.4-8.2) g/dL Albumin (3.4-5.0) g/dL TSH, Ultra Sensitive (0.358-3.740) mIU/mL Specimen Type Urinvoid Urine Color Yellow Urine Appearance Clear Urine pH 7.0 (5.0-9.0) Ur Specific [place] 1.020 (1.005-1.030) Urine Protein Negative (NEGATIVE) mg/dL Urine Glucose (UA) Negative (NEGATIVE) mg/dL Urine Ketones Trace H (NEGATIVE) mg/dL Urine Occult Blood Negative (NEGATIVE) Urine Nitrite Negative (NEGATIVE) Urine Bilirubin Negative (NEGATIVE) Urine Urobilinogen 1.0 (0.2-1.0) E.U./dL Ur Leukocyte Esterase Negative (NEGATIVE) Urine RBC Not seen /HPF Urine WBC Not seen /HPF Ur Epithelial Cells Not seen /LPF Urine Bacteria Not seen (NONE TO FEW) /HPF Urine Opiates Screen Negative (NEGATIVE) Ur Buprenorphine Scrn Negative (NEGATIVE) Ur Oxycodone Screen Negative (NEGATIVE) Ur EDDP (Meth Metab) Negative (NEGATIVE) Ur Barbiturates Screen Negative (NEGATIVE) Ur Tricyclics Screen Negative (NEGATIVE) Ur Amphetamine Screen Negative (NEGATIVE) U Methamphetamines Scrn Negative (NEGATIVE) Urine MDMA Screen Negative (NEGATIVE) U Benzodiazepines Scrn Negative (NEGATIVE) U Cocaine Metab Screen Negative (NEGATIVE) U Marijuana (THC) Screen Positive H (NEGATIVE) 02/14/19 02/14/19 Range/Units 07:15 07:15 WBC 10.7 H (4.0-10.2) K/uL RBC 5.03 (4.33-5.41) M/uL Hgb 15.2 (13.1-16.8) g/dL Hct 43.7 (39.0-49.0) % MCV 86.9 (84.0-98.0) fL MCH 30.2 (28.2-33.3) pg MCHC 34.8 (31.7-36.0) g/dL RDW 12.3 (11.2-14.1) % Plt Count 230 (150-350) K/uL Neut % (Auto) 68.4 (45.0-80.0) % Lymph % (Auto) 20.1 (10.0-50.0) % [place] % (Auto) 9.7 (2.0-14.0) % Eos % (Auto) 1.4 (0.0-5.0) % Baso % (Auto) 0.4 (0.0-2.0) % Neut # (Auto) 7.35 H (1.40-7.00) K/uL Lymph # (Auto) 2.16 (0.50-3.50) K/uL [place] # (Auto) 1.04 H (0.00-1.00) K/uL Eos # (Auto) 0.15 (0.00-0.50) K/uL Baso # (Auto) 0.04 (0.00-0.20) K/uL PT (9.5-12.0) SEC INR APTT (21.0-31.3) SEC Sodium 139 (136-145) mmol/L Potassium 3.9 (3.5-5.1) mmol/L Chloride 103 (98-107) mmol/L Carbon Dioxide 28.1 (21.0-32.0) mmol/L BUN 16 (7-18) mg/dL Creatinine 1.04 (0.51-1.17) mg/dL Est Cr Clr Drug Dosing TNP Estimated GFR (MDRD) > 60 mL/min Glucose 80 (74-106) mg/dL Lactic Acid (0.4-2.0) mmol/L Uric Acid (2.6-7.2) mg/dL Calcium 9.2 (8.5-10.1) mg/dL Magnesium (1.8-2.4) mg/dL Total Bilirubin 0.7 (0.2-1.0) mg/dL AST 16 (15-37) U/L ALT 21 (12-78) U/L Alkaline Phosphatase 63 (46-116) IU/L Creatine Kinase (26-308) U/L Creatine Kinase Index (0.0-2.5) % CK-MB (CK-2) (0.00-3.60) ng/mL Total Protein 7.8 (6.4-8.2) g/dL Albumin 4.1 (3.4-5.0) g/dL TSH, Ultra Sensitive (0.358-3.740) mIU/mL Specimen Type Urine Color Urine Appearance Urine pH (5.0-9.0) Ur Specific [place] (1.005-1.030) Urine Protein (NEGATIVE) mg/dL Urine Glucose (UA) (NEGATIVE) mg/dL Urine Ketones (NEGATIVE) mg/dL Urine Occult Blood (NEGATIVE) Urine Nitrite (NEGATIVE) Urine Bilirubin (NEGATIVE) Urine Urobilinogen (0.2-1.0) E.U./dL Ur Leukocyte Esterase (NEGATIVE) Urine RBC /HPF Urine WBC /HPF Ur Epithelial Cells /LPF Urine Bacteria (NONE TO FEW) /HPF Urine Opiates Screen (NEGATIVE) Ur Buprenorphine Scrn (NEGATIVE) Ur Oxycodone Screen (NEGATIVE) Ur EDDP (Meth Metab) (NEGATIVE) Ur Barbiturates Screen (NEGATIVE) Ur Tricyclics Screen (NEGATIVE) Ur Amphetamine Screen (NEGATIVE) U Methamphetamines Scrn (NEGATIVE) Urine MDMA Screen (NEGATIVE) U Benzodiazepines Scrn (NEGATIVE) U Cocaine Metab Screen (NEGATIVE) U Marijuana (THC) Screen (NEGATIVE) BRE Results - Last 24 hrs: None Med Orders - Current: Current Medications Acetaminophen (Tylenol) 650 mg PO Q4H PRN PRN Reason: Pain Haloperidol Lactate (Haldol) 1 mg IVPUSH Q8H PRN PRN Reason: Irritability Lorazepam (Ativan) 1 mg IVPUSH Q4H PRN PRN Reason: Irritability Ondansetron HCl (Zofran) 4 mg IVPUSH Q6H PRN PRN Reason: Nausea/Vomiting Sodium Chloride (Saline Flush) 10 ml FLUSH ASDIRECTED PRN PRN Reason: Keep Vein Open Last Admin: 02/13/19 11:52 Dose: 10 ml Sodium Chloride (Saline Flush) 10 ml FLUSH Q12HR CORY Last Admin: 02/13/19 21:27 Dose: 10 ml Discontinued Medications Famotidine (Pepcid) 40 mg IVPUSH ONETIME ONE Stop: 02/13/19 11:32 Last Admin: 02/13/19 11:51 Dose: 40 mg Haloperidol Lactate (Haldol) 1 mg IVPUSH ONETIME ONE Stop: 02/13/19 11:35 Last Admin: 02/13/19 11:51 Dose: 1 mg - Exam Quality Assessment: Reports: DVT Prophylaxis. Denies: Supplemental Oxygen, Central Line/PICC, Urine Catheter, Restraints General: Reports: Alert, Oriented, Cooperative, No Acute Distress HEENT: Reports: Pupils Equal, Pupils Reactive, EOMI, Mucous Membr. Moist/Kell Neck: Reports: Supple, Trachea Midline, No JVD, No Thyromegaly, +2 Carotid Pulse wo Bruit. Denies: Lymphadenopathy Lungs: Reports: Clear to Auscultation, Normal Respiratory Effort. Denies: Rub, Wheezing Cardiovascular: Reports: Regular Rate, Regular Rhythm, No Murmurs. Denies: Gallops, Rubs GI/Abdominal Exam: Normal Bowel Sounds, Soft, Non-Tender, No Organomegaly, No Distention, No Abnormal Bruit, No Mass. No: Guarding (Male) Exam: Deferred Rectal (Males) Exam: Deferred Back Exam: Reports: Normal Inspection, Full Range of Motion. Denies: CVA Tenderness (L), CVA Tenderness (R), Muscle Spasm Extremities: Normal Inspection, Normal Range of Motion, Non-Tender, No Pedal Edema, Normal Capillary Refill. No: Omega's Sign Skin: Reports: Warm, Dry, Intact Neurological: Reports: No New Focal Deficit Psy/Mental Status: Reports: Alert, Anxious (Mild), Depressed (Mild to moderate with adequate eye contact). Denies: Agitated, Suicidal Ideation, Homicidal Ideation, Hallucinations, Withdrawal Symptoms
== END 2019-02-14 10:15 | disposition home or self-care (01) ==
LOC: LL.ED 11:29 → UNDOADMOB 12:39 → LL.MS 12:39
PROVIDERS: ADMIT Physician Assistant; ATTEND Family Medicine
DX: T62.0X1A Toxic effect of ingested mushrooms, accidental (unintentional), initial encounter (principal); R44.0 Auditory hallucinations; R44.1 Visual hallucinations; R41.0 Disorientation, unspecified; I10 Essential (primary) hypertension; F41.8 Other specified anxiety disorders; F12.10 Cannabis abuse, uncomplicated; Z87.891 Personal history of nicotine dependence
CPT/HCPCS: 36415; 80053; 80305-QW; 81001; 82272; 82550; 82553; 83605; 83735; 84443; 84550; 85025; 85610; 85730; 87086; 96374; 96375; 99285-25; J1630; J3490

== ENCOUNTER 2020-09-05 09:45 | Emergency (ER) | payer OTHER, BC ==
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
[2020-09-05] MEDS ORDERED: Diphtheria,Pertussis(Acell),Tetanus Vaccine 0.5 ML Syringe IM ONE (11:15)
[2020-09-05] MEDS ORDERED: ceFAZolin 1 GM Vial IM ONE (11:16)
== END 2020-09-05 11:27 | disposition home or self-care (01) ==
LOC: LL.ED 09:45
DX: S80.211A Abrasion, right knee, initial encounter (principal); S90.511A Abrasion, right ankle, initial encounter; S80.812A Abrasion, left lower leg, initial encounter; S30.810A Abrasion of lower back and pelvis, initial encounter; I10 Essential (primary) hypertension; Z23 Encounter for immunization; V89.2XXA Person injured in unspecified motor-vehicle accident, traffic, initial encounter
CPT/HCPCS: 71046; 73562-RT; 73590-RT; 73600-RT; 90471; 90715; 96372; 99283; 99284-25; J0690